=== PATIENT | male | born 1970 | race Caucasian/White ===

== ENCOUNTER 2020-01-26 04:54 | Day surgery (SDC) | payer OTHER ==
[2020-01-22 15:31] VITALS: BMI 32.9
[2020-01-26 11:24] VITALS: TEMP 98
[2020-01-26 12:24] VITALS: BP 113/73; PULSE 45
--- NOTE | 2020-01-28 09:37 | PATH ---
Surgical Pathology Report Patient Name: GABRIELA HUNTER [facility]. Rec. #: [id number] /Age/Gender: 1970 (Age: 49) / M Account: [id number] Location: U-ENDOSCOPY Taken: 01/26/2020 Received: 01/26/2020 Reported: 01/28/2020 Physicians: Juan F Murillo M.D. Specimen(s) Received A: BIOPSY OF RECTAL POLYP B: BIOPSY OF SIGMOID POLYP Clinical History Colon cancer screening Postoperative diagnosis: Colon polyps Final Diagnosis A. RECTAL POLYPS, POLYPECTOMY: HYPERPLASTIC POLYP, TWO FRAGMENTS. B. SIGMOID POLYP, POLYPECTOMY: SESSILE SERRATED POLYP. Electronically Signed Esteban Fowler M.D. Gross Description A. Received in formalin, labeled "biopsy of rectal polyps" are 2 sewell, irregular portions of soft tissue averaging 0.2 cm. in greatest dimension. The specimens are submitted in toto in one cassette. B. Received in formalin, labeled "biopsy of sigmoid polyp" are 2 sewell, irregular portions of soft tissue measuring 0.7 and 1.8 cm. in greatest dimension. The specimens are submitted in toto in one cassette. DL/01/26/2020 saudi/01/26/2020
== END 2020-01-26 12:28 | disposition home or self-care (01) ==
LOC: JASU-ENDO 04:54
PROVIDERS: ATTEND Internal Medicine Gastroenterology
PROC: 0DBP8ZX Excision of Rectum, Via Natural or Artificial Opening Endoscopic, Diagnostic (ICD-10-PCS; 2020-01-26)
PROC: 0DBN8ZX Excision of Sigmoid Colon, Via Natural or Artificial Opening Endoscopic, Diagnostic (ICD-10-PCS; principal; 2020-01-26 10:30)
DX: Z12.11 Encounter for screening for malignant neoplasm of colon (principal); D12.5 Benign neoplasm of sigmoid colon; K62.1 Rectal polyp; K57.30 Diverticulosis of large intestine without perforation or abscess without bleeding
CPT/HCPCS: 88305-TC

== ENCOUNTER 2023-10-31 17:14 | Emergency (ER) | payer BC ==
[2023-10-31 17:23] VITALS: BP 111/65; PULSE 62; RESP 19; TEMP 98.6; BMI 30.8
== END 2023-10-31 18:47 | disposition home or self-care (01) ==
LOC: JERFT 17:14
PROC: 0HQ0XZZ Repair Scalp Skin, External Approach (ICD-10-PCS; principal; 2023-10-31)
DX: S01.01XA Laceration without foreign body of scalp, initial encounter (principal); V18.2XXA Unspecified pedal cyclist injured in noncollision transport accident in nontraffic accident, initial encounter
CPT/HCPCS: 99283-25